=== PATIENT | male | born 1950 | race Caucasian/White ===

== ENCOUNTER 2023-09-29 23:17 | Inpatient (IN) | payer MEDICARE, SELFPAY ==
[2023-09-29 21:13] VITALS: BP 155/88
--- NOTE | 2023-09-29 21:30 | EDRN ---
In to patients room, patient in the bathroom, once out of bathroom pacing around room and wont sit down to be placed on monitor, was able to get patient to sit on edge of bed so I could start an IV and send blood
[2023-09-29 21:41] LABS: % Basophils 0.5 % (0-2); % Eosinophils 9.2 % (0-6); % Immature Granulocytes 0.4 % (0-0.5); % Lymphocytes 17.5 % (20.5-51.1); % Monocytes 6.7 % (1.7-9.3); % Neutrophils 65.7 % (42.2-75.2); Absolute Basophils 0.1 10^3/uL (0-0.2); Absolute Lymphocytes 1.8 10^3/uL (1.2-3.4); Absolute Monocytes 0.7 10^3/uL (0.1-0.6); Absolute Neutrophils 6.8 10^3/uL (1.4-6.5); Hematocrit 41.8 % (39.0-52.0); Hemoglobin 14.7 g/dL (13.0-18.0); Mean Corp Hgb Conc. 35.2 g/dL (33.0-37.0); Mean Corpuscular Hgb 31.5 pg (27.0-31.0); Mean Corpuscular Volume 89.5 fL (80.0-94.0); Mean Platelet Volume 9.5 fL (7.4-10.4); Nucleated Red Blood Cells % 0 % (-); Platelet Count 208 10^3/uL (130-400); Red Blood Cell Count 4.67 10^6/uL (4.70-6.10); Red Cell Dist. Width 13.8 % (11.5-14.5); White Blood Cell Count 10.4 10^3/uL (4.8-10.8)
[2023-09-29] MEDS: DUONEB 3 ML INH (21:48)
[2023-09-29] MEDS: DECADRON 10 MG IV (21:49)
[2023-09-29 22:04] LABS: Troponin I < 0.012 ng/ml
[2023-09-29 22:12] LABS: ALT (SGPT) 26 U/L (0-50); AST (SGOT) 34 U/L (17-59); Albumin 4.7 g/dl (3.5-5.0); Alkaline Phosphatase 96 U/L (38-126); Blood Urea Nitrogen 19 mg/dl (9-20); Calcium 11.2 mg/dl (8.4-10.2); Carbon Dioxide 24 mmol/L (22-30); Chloride 103 mmol/L (98-107); Glucose 110 mg/dl (70-99); Potassium 4.7 mmol/L (3.5-5.1); Sodium 141 mmol/L (135-145); Total Bilirubin 0.7 mg/dl (0.2-1.3); Total Protein 7.7 g/dl (6.3-8.2); eGFR 57.65
--- NOTE | 2023-09-29 22:18 | ED.GENMED ---
History of Present Illness
General
Chief Complaint: Breathing Problem
Source: patient and spouse
Exam Limitations: none
Time Seen by Provider: 09/29/23 21:29
Nursing documentation reviewed up to this point in time: agreed with
Travel History
Have you had any contact with someone who has COVID-19?: No
Do you have any symptoms of coronavirus? Fever > 100 degrees, chills, cough, shortness of breath, sore throat, loss of taste or smell, muscle aches, or headache?: No
History of Present Illness
History of Present Illness:
Patient to ED with complaint of severe PAGE. History of underlying lung disorder but he states he has never received an exact diagnosis. Has been on prednisone for the past 6 years which he feels has been helpful. Has been trying to wean self off
med and reports being on 5mg prednisone before running out of med a few days ago. Has been using his inhalers without improvement. Denies fever/chills. Chronic cough. Pulse ox at home mid 80's. No home O2. Typically pulse ox runs in the mid 90's
at home. NO home O2.
Past History
Past History
ED Past Medical History: CAD, Cancer, CHF, GERD, HTN and Hypercholesterolemia
ED Past Surgical History: Orthopedic and Other
Social History
Tobacco: Non-smoker
Alcohol: Occasional
Drug: None
Personal:
Living: with family
Employment: Retired
Family History
Family History: CAD
Review of Systems
Review of Systems
Allergies reviewed?: Yes
All Other Systems: ROS reviewed and negative except as documented in HPI and ROS
Constitutional: Reports no symptoms
EENT: Reports no symptoms
Respiratory: Reports cough and trouble breathing
Cardiac: Reports no symptoms
ABD/GI: Reports no symptoms
: Reports no symptoms
Musculoskeletal: Reports no symptoms
Skin: Reports no symptoms
Neurological: Reports weakness
Psychiatric: Reports no symptoms
Phy Exam
General Physical Exam
General Presentation: mild distress
General age: appears stated age
General Skin: warm and dry
General Habitus: normal
General Mental: alert
Cardiovascular Exam
Cardiovascular Exam: regular rate/rhythm and no edema
Pulmonary Exam
Pulmonary Exam: chest non tender, decreased breath sounds and generalized wheezing
Oxygen Status: other (Pulse ox 88%RA. Placed on 2L, maintaining at 93%)
Musculoskeletal Exam
Musculoskeletal Exam: full ROM and neuro vasc intact
Skin Exam
Skin Exam: normal color, warm/dry and no rash
Psychiatric Exam
Psychiatric Exam: normal mood/affect
Scores
Heart Failure Risk
Heart Failure Risk Score: Not Applicable
Course
Orders/Labs/Results
Orders:
Orders
09/29/23 21:30
Chest [CR Chest - 2 Views ] Urgent
Comment:
Reason For Exam: cougj/sob
09/29/23 21:32
CMP [Comprehensive Metabolic Panel] Urgent
Complete Blood Count/With Diff Urgent
NT-proBNP Urgent
Troponin I Urgent
09/29/23 21:41
Dexamethasone Sod Phosphate [Decadron] 10 mg IV NOW STA
Ipratropium/Albuterol Sulfate [Duoneb] 3 ml INH R NOW STA
09/29/23 22:53
COVID-19 Antigen Stat
Source: Nasal Swab
Influenza A+B Rapid Molecular Stat
JUNAID Source: Nasal Swab
Specimen Description:
09/29/23 22:56
Admit/Transfer Patient As Directed
Co-Sign Provider:
Level of Care: Inpatient admission
Assign to:: Medical/Surgical
Physician / Group: radha
Diagnosis: acute hypoxia
Reason for Hospitalization: acute hypoxia
Expected length of stay greater than two midnights?: Yes
ELOS- Estimated Length of Stay in days: 3
I certify the patient meets the requirements for IP care: Yes
09/29/23 22:58
Code Status As Directed
Resuscitation Status: Full Code
09/30/23 00:31
Acetaminophen [Tylenol] 650 mg PO Q4HPRN PRN
Bisacodyl [Dulcolax] 10 mg RECTAL [id number] PRN
Dextrose 50%-Water [Dextrose 50% Syringe] 12.5 grams IV [id number] PRN
Docusate W/Senna [Senokot-S] 1 tablet PO BIDPRN PRN
Glucagon [GlucaGen] 1 mg IM PRN PRN
Polyethylene Glycol Powder [Miralax] 17 grams PO DAILYPRN PRN
09/30/23 00:31
Consult Notification Routine
Specialty to Notify: Pulmonary
Date consulting provider notified: 09/30/23
Time consulting provider notified: 02:31
Notified:: Provider
Comment: Gadiel Strong
PULMONARY CONSULT Routine
Consulting Provider: Gadiel Strong
Was physician already notified: No
Reason for consult: acute hypoxic respiratory failure
Activity As Directed
Activity Level: As Tolerated
Bedside Glucose Monitoring As Directed
Frequency: AC&HS
Additional Instructions:: Change to q6h if pt on TPN, tube feeding or not eating
Intake/ Output As Directed
Frequency: Per unit guidelines
Vital Signs As Directed
Frequency: Per unit guidelines
Weight As Directed
Frequency: Daily
O2 Therapy [RESP] Routine
Nasal Cannula Liter Flow: 2 LPM
Titrate/Wean O2 to maintain O2 sat greater than (%): 92
DX Deep Vein Thrombosis Video Routine
09/30/23 04:27
Basic Metabolic Panel IN AM
Complete Blood Count/No Diff IN AM
Glycohemoglobin (HgbA1c) IN AM
Troponin I Q6H
09/30/23 Breakfast
1800 calorie (15 carb) Diabetic
At Your Request: Full Participation
Dexamethasone Sod Phosphate [Decadron] 4 mg IV Q6H
09/30/23 07:30
Insulin Aspart Corrective Low [Novolog Flexpen-Low Resistance] See Protocol SC AC
09/30/23 08:00
Aspirin Low Dose EC [Aspir Low (Enteric Coated)] 81 mg PO DAILY
Atorvastatin [Lipitor] 80 mg PO DAILY
Bumetanide [Bumex] 4 mg PO DAILY
Gabapentin [Neurontin] 100 mg PO TID
Heparin 5,000 units SC Q12
HydrALAZINE [Apresoline] 50 mg PO BID
Losartan [Cozaar] 50 mg PO DAILY
Metoprolol Xl [Toprol Xl] 12.5 mg PO DAILY
Potassium Chloride [KCl] 10 meq PO BID
Spironolactone [Aldactone] 25 mg PO DAILY
Tamsulosin [Flomax] 0.4 mg PO DAILY
09/30/23 09:37
Troponin I Q6H
Abnormal Lab Results
09/29/23
21:32
RBC 4.67 L 10^6/uL
(4.70-6.10)
MCH 31.5 H pg
(27.0-31.0)
Absolute Neuts (auto) 6.8 H 10^3/uL
(1.4-6.5)
Absolute Monos (auto) 0.7 H 10^3/uL
(0.1-0.6)
Absolute Eos (auto) 1.0 H 10^3/uL
(0-0.7)
Lymphocytes % 17.5 L %
(20.5-51.1)
Eosinophils % 9.2 H %
(0-6)
Glucose 110 H mg/dl
(70-99)
Calcium 11.2 H mg/dl
(8.4-10.2)
09/29/23 21:32
09/29/23 21:32
Vital Signs
Initial and Last Documented VS:
Initial Vital Signs
Temp Pulse Resp BP Pulse Ox
98.5 F 86 24 155/88 94
09/29/23 21:13 09/29/23 21:13 09/29/23 21:13 09/29/23 21:13 09/29/23 21:13
Last Documented Vital Signs
Temp Pulse Resp BP Pulse Ox
98.2 F 61 16 136/79 95
10/01/23 15:37 10/01/23 20:22 10/01/23 19:18 10/01/23 20:22 10/01/23 19:18
*Critical Care Note
Total Time (30-74mins, 75-104mins- exclusive of procedures): Not Applicable
ED Attending Note
-
Portions of this chart may have been created with voice recognition software.� Occasional wrong word or��sound alike� substitutions may have occurred due to the inherent limitations of voice recognition software.
Discharge Plan
Departure
Patient Disposition: Admit
Date of Disposition: 09/29/23
Time of Disposition: 22:31
Presentation/result/management discussed w/ accepting MD/DO: Hospitalist
Condition: Fair
Covid-19: Not Applicable
Discharge Problem:
PAGE (dyspnea on exertion), Hypoxemia
Interventions
Interventions:
*Risk Screen - Suicide Last Done: 09/30/23 00:37
*General Assessment Last Done: 09/29/23 22:34
*Neglect/Abuse Screening Last Done: 09/29/23 21:13
ED- Fall Risk Assessment Last Done: 09/29/23 22:03
*ED COVID-19 Vaccine History Last Done: 09/30/23 00:37
*Nursing Disposition Last Done: 09/30/23 00:19
ED- Cardiac Assessment Last Done: 09/29/23 22:03
ED- Pulmonary Assessment Last Done: 09/29/23 22:03
Discharge Date and Time
Discharge Date/Time: 09/30/23 00:19
[2023-09-29 22:34] VITALS: BMI 33.5
--- NOTE | 2023-09-29 22:34 | HPS.HSE ---
Family Physician
-
Family Physician:
Chief Complaint
-
sob
History of Present Illness
73-year-old with past medical history for lung disease, CAD, CHF, GERD, hypertension, hyperlipidemia presented to us with short of breath for past few nights. Short of breath worse with mild activity. Stated chronic orthopnea. Patient was
prednisone on Saturday. Patient has been using nebulizer treatment with no relief in his symptoms. denies chest pain. Patient does have cough. Denies fever, chills, chest pain. Patient denies any headache, dizziness, syncopal episode. Patient
denied abdominal pain, nausea, vomiting, diarrhea. Patient denied dysuria hematuria.
Patient received a dose of dexamethasone in ER. Admitting for further management
Medical History
Past Medical History
Past Medical History: Reports Other
Additional Past Medical History:
PVCs
Hypertension
Congestive heart failure
Coronary artery disease
Past Surgical History: Reports Other
Additional Past Surgical History:
Cardiac stents
Social History
Tobacco: Non-smoker
Alcohol: None
Drug: None
Personal:
Living: With Family
Family History
Family History: Not pertinent
Allergies / Home Medications
Allergies reflects when Allergies were last updated in [facility].
Home Medications with original date entered in [facility]
Allergy/Medication List:
Allergies
Allergy/AdvReac Type Severity Reaction Status Date / Time
No Known Allergies Allergy Verified 09/29/23 21:16
Home Medications
aspirin 81 mg tablet,delayed release 81 mg PO DAILY Blood Clot Prevention/Tx 04/29/15
losartan 50 mg tablet 50 mg PO DAILY Blood Pressure 08/03/15
acetaminophen 500 mg tablet (Tylenol Extra Strength) 1,000 mg PO Q6H PRN mild pain 02/19/17
albuterol sulfate 2.5 mg/3 mL (0.083 %) solution for nebulization 2.5 mg inhalation R Q4HPRN PRN wheeze/cough 05/05/20
albuterol sulfate 90 mcg/actuation aerosol inhaler 2 puff inhalation R Q4HPRN PRN WHEEZING 05/05/20
cholecalciferol (vitamin D3) 25 mcg (1,000 unit) tablet 1,000 units PO DAILY Supplement 05/05/20
tamsulosin 0.4 mg capsule 0.4 mg PO DAILY Urinary Issue 05/05/20
atorvastatin 80 mg tablet 80 mg PO DAILY High Cholesterol 12/06/22
bumetanide 2 mg tablet 4 mg PO DAILY Fluid Retention/Swelling 12/06/22
coenzyme Q10 75 mg capsule 75 mg PO DAILY Supplement 12/06/22
famotidine 40 mg tablet 40 mg PO DAILY 12/06/22
hydralazine 25 mg tablet 50 mg PO BID Blood Pressure 12/06/22
metoprolol succinate 25 mg tablet,extended release 24 hr 12.5 mg PO DAILY Heart Failure 12/06/22
nitroglycerin 0.4 mg sublingual tablet (Nitrostat) 0.4 mg sublingual [id number] PRN chest pain 12/06/22
omega 8-lrj-kaa-fish oil 60 mg-90 mg-500 mg capsule (Fish Oil) 1 cap PO BID Blood Pressure 12/06/22
potassium chloride 10 mEq tablet,extended release 10 meq PO BID Electrolyte Repletion 12/06/22
prednisone 10 mg tablet 10 mg PO DAILY inflammation 12/06/22
spironolactone 25 mg tablet 25 mg PO DAILY Heart Failure 12/06/22
modafinil 200 mg tablet 200 mg PO DAILYPRN PRN narcolepsy symptoms 12/07/22
gabapentin 100 mg capsule 100 mg PO TID #90 caps 12/09/22
metformin 500 mg tablet 500 mg PO BID 09/29/23
Review of Systems
-
Constitutional: Reports No Symptoms
EENT: Reports No Symptoms
Respiratory: Reports Cough and Trouble Breathing
Cardiac: Reports No Symptoms
Abdomen/GI: Reports No Symptoms
: Reports No Symptoms
Musculoskeletal: Reports No Symptoms
Skin: Reports No Symptoms
Neurological: Reports No Symptoms
Endocrine: Reports No Symptoms
Hematologic/Lymphatic: Reports No Symptoms
Psych: Reports No Symptoms
Physical Exam
Vital Signs
Vital Signs
Temp Pulse Resp BP Pulse Ox
98.5 F 86 24 155/88 94
09/29/23 21:13 09/29/23 21:13 09/29/23 21:13 09/29/23 21:13 09/29/23 21:13
Physical Exam
General: Well Developed, Well Nourished and No Apparent Distress
HEENT: NormoCephalic, Moist mucous membranes and Atraumatic
Respiratory: Rales and Rhonchi
Cardiac: S1/S2 and Regular Rhythm; No Murmur or Rub
GI: Soft, Non Tender, Non Distended and Normal Bowel Sounds; No Organomegaly
Rectal: Deferred by Provider
Musculoskeletal: No Clubbing, No Cyanosis and No Edema
Skin: No Rash
Neuro: AO x 3 and Nonfocal/grossly intact
Psych: Calm
Laboratory Results
-
09/29/23 21:32
09/29/23 21:32
Laboratory Results
Total Bilirubin 0.7 mg/dl (0.2-1.3) 09/29/23 21:32
AST 34 U/L (17-59) 09/29/23 21:32
ALT 26 U/L (0-50) 09/29/23 21:32
Alkaline Phosphatase 96 U/L (38-126) 09/29/23 21:32
Troponin I < 0.012 ng/ml 09/29/23 21:32
Data Reviewed
-
Diagnostic Radiology: Report Reviewed by me
Lab Data: Labs Reviewed by me
Impression/Plan
-
#PAGE/cough /acute hypoxic respiratory failure likely from lung disease
-chest x ray pending
-Obtain COVID and flu
-Decadron 4 Mg IV every 6 hours
-Pulmonology consult
-Nebs as needed for short of breath and wheezing
-Continue supplemental oxygen to keep sat greater than 92
-Wean as tolerated
#hypercalcemia
-ca 11.2
-Monitor
# Essential hypertension
-Hydralazine, losartan, metoprolol continued
#CORONARY ARTERY DISEASE
-Continue aspirin
#Chronic heart failure with preserved ejection fraction
-Obtain echocardiogram
-Continue Bumex spironolactone
-Strict CESAR
-Daily weight
#Diabetic neuropathy
-Gabapentin continued
#BPH - Flomax
#DVT PPx hep subQ
full code
--- NOTE | 2023-09-29 22:42 | EDRN ---
Hospitalist at bedside working on admission, patient provided with water, patient still wants to sit on end of bed, is more comfortable that way, call ash in reach
[2023-09-29 23:17] LABS: COVID-19 Antigen Negative (Negative)
--- NOTE | 2023-09-29 23:19 | W.PN.UPDATE ---
Update Note
Progress Note Update
Attending note. Patient interviewed and examined independently
73-year-old man with past medical history of:
lung disease,
CAD,
CHF,
GERD,
hypertension,
hyperlipidemia
comes in with short of breath for past few days. He has also been Short of breath with mild activity. He has chronic orthopnea. He was started on prednisone on Saturday, and he has been using nebulizer treatment with no relief in his symptoms. He
denies chest pain, but does have cough. he denies fever, chills, chest pain, any headache, dizziness, syncopal episode, abdominal pain, nausea, vomiting, diarrhea, dysuria or hematuria. at the time of my interview he was feeling better after having
had steroids in the ED.
Past Medical History
PVCs
Hypertension
Congestive heart failure
Coronary artery disease
Past Surgical History: Reports Other
Additional Past Surgical History:
Cardiac stents
Physical Exam
General: Well Developed, Well Nourished and No Apparent Distress
HEENT: NormoCephalic, Moist mucous membranes and Atraumatic
Respiratory: Rales and Rhonchi
Cardiac: S1/S2 and Regular Rhythm; No Murmur or Rub
GI: Soft, Non Tender, Non Distended and Normal Bowel Sounds; No Organomegaly
A/P:
1. PAGE/cough /acute hypoxic respiratory failure likely from lung disease and current high pollen counts
-check for COVID and flu
-Decadron 4 Mg IV every 6 hours
-Pulmonology consult
-Nebs as needed for short of breath and wheezing
-Continue supplemental oxygen to keep sat greater than 92
2. Chronic heart failure with preserved ejection fraction
echocardiogram
Continue Bumex spironolactone
Strict CESAR
Daily weight
Please see midlevel note for other details.
[2023-09-30 00:25] VITALS: BP 167/76; BMI 33.2
--- NOTE | 2023-09-30 00:45 | PTCARENOTE ---
Pt admitted to unit from ED on 2L NC. Pt ambulated self to bed from stretcher. Pt denies SOB and difficulty breathing. [id number]. Pt oriented to room with call sah in reach. Plan of care ongoing.
[2023-09-30 01:58] LABS: Glucose - Point of Care 127 mg/dl (70-99)
[2023-09-30 04:37] LABS: Hematocrit 40.5 % (39.0-52.0); Hemoglobin 13.6 g/dL (13.0-18.0); Mean Corp Hgb Conc. 33.6 g/dL (33.0-37.0); Mean Corpuscular Hgb 31.3 pg (27.0-31.0); Mean Corpuscular Volume 93.1 fL (80.0-94.0); Mean Platelet Volume 9.8 fL (7.4-10.4); Platelet Count 179 10^3/uL (130-400); Red Blood Cell Count 4.35 10^6/uL (4.70-6.10); Red Cell Dist. Width 13.5 % (11.5-14.5); White Blood Cell Count 6.9 10^3/uL (4.8-10.8)
[2023-09-30 05:02] LABS: Blood Urea Nitrogen 18 mg/dl (9-20); Calcium 10.4 mg/dl (8.4-10.2); Carbon Dioxide 25 mmol/L (22-30); Chloride 102 mmol/L (98-107); Estimated Creatinine Clearance 65 ml/min; Glucose 150 mg/dl (70-99); Potassium 4.9 mmol/L (3.5-5.1); Sodium 139 mmol/L (135-145); eGFR > 60.00
[2023-09-30 05:12] LABS: Troponin I 0.014 ng/ml
[2023-09-30 05:55] VITALS: BMI 33.1
[2023-09-30] MEDS: DECADRON 4 MG IV ×4 (06:02→23:18)
[2023-09-30 06:28] LABS: Glucose - Point of Care 131 mg/dl (70-99)
[2023-09-30 07:38] VITALS: BP 167/85
[2023-09-30] MEDS: BUMEX 4 MG PO (07:55)
[2023-09-30] MEDS: COZAAR 50 MG PO (07:55)
[2023-09-30] MEDS: NEURONTIN 100 MG PO ×3 (07:56→22:19)
[2023-09-30] MEDS: FLOMAX 0.400000000000000022 MG PO (07:56)
[2023-09-30] MEDS: APRESOLINE 50 MG PO ×2 (07:56→20:55)
[2023-09-30] MEDS: KCL 10 MEQ PO ×2 (07:56→20:47)
[2023-09-30] MEDS: ALDACTONE 25 MG PO (07:56)
[2023-09-30] MEDS: ASPIR LOW (ENTERIC COATED) 81 MG PO (07:56)
[2023-09-30] MEDS: LIPITOR 80 MG PO (07:56)
[2023-09-30] MEDS: TOPROL XL 12.5 MG PO (07:56)
[2023-09-30] MEDS: HEPARIN 5000 UNITS SC ×2 (07:57→20:48)
[2023-09-30 09:41] LABS: Glycohemoglobin (HgbA1c) 6.4 % (4.0-5.6)
[2023-09-30] MEDS: MUCINEX 1200 MG PO ×2 (09:42→20:47)
[2023-09-30] MEDS: TESSALON PERLES 200 MG PO ×2 (09:43→20:47)
[2023-09-30 10:16] LABS: Troponin I < 0.012 ng/ml
--- NOTE | 2023-09-30 10:18 | W.PN.HOSP.TC ---
Today's Communication/Plan
-
.
Assessment / Plan
Assessment / Plan
Physical Exam
General: Keeps coughing while talking. But not in acute distress
HEENT: Normocephalic, Atraumatic, EOMI, MMM
Respiratory: Rales and wheezes bilaterally
Cardiac: Normal S1/S2, Regular Rate and Rhythm
GI: Soft, Nontender, Nondistended, Normal Bowel Sounds
Extremities: No Clubbing, Cyanosis, or Edema
Neuro: Nonfocal/Grossly Intact
Psych: Calm, Cooperative
: no hematuria
# Acute respiratory distress with acute hypoxic respiratory failure
Underlying chronic lung disease on chronic prednisone. Per pt ( COPD, Eosinophilic lung disease) . No hx of smoking or vaping. He follows with Dr Gilmar Mccormack at [facility]. Try to get records
-Negative COVID and flu
- Chest x ray : No acute cardiopulmonary process.
-Decadron 4 Mg IV every 6 hours. On daily prednisone at 10 mg ( recently ran out )
- Order Duo Neb ATC
-Add Mucinex & Tessalon
-Nebs as needed for short of breath and wheezing
-Continue supplemental oxygen to keep sat greater than 92
# Chronic heart failure with preserved ejection fraction
Continue Bumex spironolactone
Daily weight
# Hypercalcemia, possibly related to high Vitamin D, check level
# DM
HGB A1C 6.4
c/w home regimen upon dc
for now, do ISS . Blood glucose might go up due to steroid therapy.
# CAD
Negative serial troponin
No chest pain
# Primary HTN
c/w metoprolol, hydralazine, losartan, Bumex and Aldactone
# BPH - Flomax, hold if hypotensive
DVT PPx hep subQ
Total time spent to see the patient, examine the patient on the floor, review data and lab results, discuss treatment plan with patient, nursing staff around 55 minutes
Anticipated Discharge: > 48 hours
Subjective/Interval History
-
Date of Service: September 30, 2023
Still cough but less sob
No fevers
No chest pains
Objective Data
-
Labs:
Laboratory Results
09/30/23
04:27
WBC 6.9
Hgb 13.6
Hct 40.5
Plt Count 179
Sodium 139
Potassium 4.9
Chloride 102
Carbon Dioxide 25
BUN 18
Creatinine 1.2
Glucose 150 H
Calcium 10.4 H
Vital Signs:
Vital Signs
Temp Pulse Resp BP Pulse Ox
98.2 F 59 16 167/85 95
09/30/23 07:38 09/30/23 07:38 09/30/23 07:38 09/30/23 07:56 09/30/23 07:38
I&O
09/29/23 09/30/23 10/01/23
06:59 06:59 06:59
Intake Total 480 / 480
Balance 480 / 480
--- NOTE | 2023-09-30 11:03 | CON.PUL ---
Consultation
Consultation Request
Date/Time Consultation Requested: 09/30/202330
Date/Time Consultation Performed: 09/30/2023 - 1039
Requesting Provider: BRISEYDA Mayo
Performing Provider: Dr. Strong
Reason for Consultation: SOB/Hypoxia
Medical History
-
Chief Complaint: Worsening SOB + productive cough/congestion
History of Present Illness:
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
home. Patient says that he is on chronic prednisone usually on average 10 mg daily. He ran out of prednisone on and was unable to make it throughout the holiday weekend so he came into the hospital. He usually gets multiple flareups a
year, and is able to overcome it with prednisone and Z-Danilo. 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 He has been seen at [facility] as well as [facility]. He has
a nebulizer at home and he uses this only for as needed purposes. He says that he previously was on Nucala about 5 years ago for 6 months, but he is not sure if it really helped him breathe better so he stopped, also he was very cost prohibitive.
In the ER he was saturating 94% on room air but due to shortness of breath he was placed onto 2 L/min and saturating at 97%. He was tachypneic to 24 breaths/min, heart rate 86 and afebrile to 98.5 �F. Initial BP 155/88. Labs showed an absolute
eosinophil count of 1000, proBNP of 81, and he was COVID antigen negative. Flu swab also negative and CXR showed no acute cardiopulmonary process.
When I saw the patient he was in bed, in no acute distress, on 2 L/min nasal cannula breathing comfortably. He says he feels a little better since being here because he was unable to tolerate any activity at home and was coughing severely. He
denies any bloody phlegm. He currently denies chest pain, headache, abdominal pain, fevers or chills.
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
PSHx: Left shoulder pain, renal stent, torn meniscus of left knee, history of radiation for prostate cancer, right shoulder plate and 12 screws (November 2010), coronary stent
Past Medical History
Past Medical History: Other (Above as per HPI)
Past Surgical History: Other (Above as per HPI)
Social History
Tobacco: Non-smoker
Alcohol: None
Drug: None
Personal:
Living: With Family
Family History
Family History: Reviewed & Not Pertinent
Allergies / Home Medications
Allergies
Allergy/AdvReac Type Severity Reaction Status Date / Time
No Known Allergies Allergy Verified 09/29/23 21:16
Home Medications
�Medication �Instructions �Recorded �Confirmed �Last Taken �Type
aspirin 81 mg tablet,delayed 81 mg PO DAILY Blood Clot 04/29/15 09/30/23 09/29/23 History
release Prevention/Tx
losartan 50 mg tablet 50 mg PO DAILY Blood Pressure 08/03/15 09/30/23 09/29/23 History
acetaminophen 500 mg tablet 1,000 mg PO Q6H PRN mild pain 02/19/17 09/29/23 Unknown History
(Tylenol Extra Strength)
albuterol sulfate 2.5 mg/3 mL 2.5 mg inhalation R Q4HPRN PRN 05/05/20 09/30/23 09/29/23 History
(0.083 %) solution for nebulization wheeze/cough
albuterol sulfate 90 mcg/actuation 2 puff inhalation R Q4HPRN PRN 05/05/20 09/30/23 09/29/23 History
aerosol inhaler WHEEZING
cholecalciferol (vitamin D3) 25 1,000 units PO DAILY Supplement 05/05/20 09/30/23 09/29/23 History
mcg (1,000 unit) tablet
tamsulosin 0.4 mg capsule 0.4 mg PO DAILY Urinary Issue 05/05/20 09/30/23 09/29/23 History
atorvastatin 80 mg tablet 80 mg PO DAILY High Cholesterol 12/06/22 09/30/23 09/29/23 History
bumetanide 2 mg tablet 4 mg PO DAILY Fluid 12/06/22 09/30/23 09/29/23 History
Retention/Swelling
coenzyme Q10 75 mg capsule 75 mg PO DAILY Supplement 12/06/22 09/30/23 09/29/23 History
famotidine 40 mg tablet 40 mg PO DAILY Gastrointestinal 12/06/22 09/30/23 09/29/23 History
Issue
hydralazine 25 mg tablet 50 mg PO BID Blood Pressure 12/06/22 09/30/23 09/29/23 18:00 History
metoprolol succinate 25 mg 12.5 mg PO DAILY Heart Failure 12/06/22 09/30/23 09/29/23 History
tablet,extended release 24 hr
nitroglycerin 0.4 mg sublingual 0.4 mg sublingual [id number] PRN 12/06/22 09/29/23 Unknown History
tablet (Nitrostat) chest pain
omega 2-dxx-kre-fish oil 60 mg-90 1 cap PO BID Blood Pressure 12/06/22 09/29/23 Unknown History
mg-500 mg capsule (Fish Oil)
potassium chloride 10 mEq 10 meq PO BID Electrolyte Repletion 12/06/22 09/30/23 Unknown History
tablet,extended release
prednisone 10 mg tablet 10 mg PO DAILY inflammation 12/06/22 09/30/23 09/27/23 History
spironolactone 25 mg tablet 25 mg PO DAILY Heart Failure 12/06/22 09/30/23 09/29/23 History
modafinil 200 mg tablet 200 mg PO DAILYPRN PRN narcolepsy 12/07/22 09/30/23 09/30/23 History
symptoms
gabapentin 100 mg capsule 100 mg PO TID #90 caps 12/09/22 09/30/23 09/29/23 18:00 Rx
metformin 500 mg tablet 500 mg PO BID Diabetes 09/29/23 09/30/23 09/29/23 18:00 History
Review of Systems
-
History Source: Patient
All other systems: Negative unless noted
Vitals / Labs / Diagnostic Testing
Vital Signs
Temp Pulse Resp BP Pulse Ox
98.2 F 59 16 167/85 95
09/30/23 07:38 09/30/23 07:38 09/30/23 07:38 09/30/23 07:56 09/30/23 07:38
Lab Data
09/30/23 04:27
09/30/23 04:27
Microbiology
09/29/23 22:53 Nasal Swab Influenza Types A & B (FABIENNE) - Final
Negative for Influenza A & B, NAAT
Negative results must be combined with clinical observations
and patient history.
Nucleic Acid Amplification test (NAAT)performed on the
[employer] platform.
Diagnostic Testing:
Physical Exam
-
HEENT: Normocephalic and Anicteric
Cardiovascular: S1/S2 and Peripheral Edema (+1 lower extreme edema bilaterally)
Respiratory: Wheeze ([place] occasionally in the middle lung garg (R >L)), Rales (Negative), Rhonchi (Negative) and Non-Labored Respirations
GI: Soft, Distended (Abdominal obesity), Non Tender and Normal Bowel Sounds
Neurology: AO x 3 and Tremors (Negative)
Skin: Warm and Dry
General: Comfortable, Fever (Negative) and Chills (Negative)
Assessment
-
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
inhalers/nebulizers at home. Patient says that he is on chronic prednisone usually on average 10 mg daily. He ran out of prednisone on and was unable to make it throughout the holiday weekend so he came into the hospital. He usually gets
multiple flareups a year, and is able to overcome it with prednisone and Z-Danilo. 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 He has been seen at [facility] as well as [facility]. He has a nebulizer at home and he uses this only for as needed purposes. He says that he previously was on Nucala about 5 years ago for 6 months, but he is not sure if it really helped him breathe better so he stopped, also he was
very cost prohibitive. In the ER he was saturating 94% on room air but due to shortness of breath he was placed onto 2 L/min and saturating at 97%. He was tachypneic to 24 breaths/min, heart rate 86 and afebrile to 98.5 �F. Initial BP 155/88.
Labs showed an absolute eosinophil count of 1000, proBNP of 81, and he was COVID antigen negative. Flu swab also negative and CXR showed no acute cardiopulmonary process.
Chronic conditions G[employer]ER: Hypertension, CHF, CAD s/p coronary stent, PVCs, history of asthma on chronic prednisone (however he has also been told that he has eosinophilic bronchitis, and occupational asthma ([facility] lung)), history of prostate cancer
s/p XRT
Impression:
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
#Increased eosinophil count (absolute count of 1000 on 09/29/2023)
#Prediabetes with A1c 6.4
#History of CAD s/p coronary stent
#Chronic HFpEF (via TTE from December 2022 with LVEF 55 to 60%, and normal RV size/function)
#Obesity with BMI of 33
Plan:
- Continue with systemic steroids and wean as tolerated � currently on Decadron 4 mg IV q6hr
- Duonebs QID with prn doses for in between breakthrough Sx
- Check Aspergillus spp serology + IgE level
- Given that he is on chronic prednisone with an eosinophil count of 1000 with symptoms consistent with asthma, I believe he would greatly benefit from a biologic as add on maintenance treatment.
- As he gets closer to discharge, he should be started on Symbicort and Spriva and sent home on Bretri vs Trelegy 200mcg, and I will see him in the office.
- Maintain SpO2 >90-94% with supplemental O2 as needed
- Incentive spirometer encouraged
- Given his obesity with prediabetes, heart disease and heart failure, he should also be screened for sleep disordered breathing. I can discuss this with him in the office.
- Monitor volume status given his Hx of chronic HFpEF and he has b/l LE edema, but appear not to have rales today. May need lasix though going forward if o2 requirements worsen
- Replete electrolytes with K>4, Mg>2
- Maintain euglycemia with goal BG >100 and <180
- DVT ppx
As stated above, he should be discharged on triple inhaler therapy with Breztri versus Trelegy 200 mcg upon discharge, and I will see him in the office to discuss adding on a biologic (likely Dupixent as he did not feel improvement with Nucala in
the past + it was cost-prohibitive). He will also need to be discharged home on prednisone as he chronically takes 10 mg daily, on average.
Pulmonary service will continue to follow along.
Data:
CXR � 09/29/2023: No acute cardiopulmonary process
TTE :
Normal left ventricular chamber size.
Normal regional wall motion.
Mild concentric left ventricular hypertrophy.
Left ventricular ejection fraction is 55-60% by volumetric assessment.
Normal right ventricular size and function.
Trace mitral regurgitation.
The tricuspid valve is structurally and functionally normal.
The pulmonic valve is structurally and functionally normal.
No pericardial effusion.
The aortic arch is normal in caliber.
The IVC was not well visualized.
Interatrial septum is intact with no evidence of shunting by color flow Doppler.
Total time spent today was 55 minutes for this encounter. Time includes reviewing laboratory test/imaging results, reviewing pertinent medical records, obtaining and reviewing medical history, performing an appropriate exam, ordering medications,
tests and procedures. Time also includes documentation of this encounter, coordinating patient care and communicating with other healthcare professionals. Total time does not include separately billed tests performed on this date of service.
[2023-09-30] MEDS: DUONEB 3 ML INH ×3 (11:17→19:58)
[2023-09-30] MEDS: PLAVIX 75 MG PO (11:25)
[2023-09-30 11:48] LABS: Glucose - Point of Care 128 mg/dl (70-99)
[2023-09-30] MEDS: TYLENOL 650 MG PO (13:50)
[2023-09-30 15:22] VITALS: BP 149/73
[2023-09-30 16:40] LABS: Glucose - Point of Care 123 mg/dl (70-99)
[2023-09-30 21:26] LABS: Glucose - Point of Care 190 mg/dl (70-99)
[2023-09-30] MEDS: KLONOPIN 0.5 MG PO (22:19)
[2023-09-30 23:23] VITALS: BP 159/77
[2023-10-01] MEDS: DECADRON 4 MG IV ×3 (05:55→23:30)
[2023-10-01 06:00] VITALS: BMI 32.1
[2023-10-01 07:45] LABS: Glucose - Point of Care 125 mg/dl (70-99)
[2023-10-01 07:51] VITALS: BP 158/80
[2023-10-01] MEDS: DUONEB 3 ML INH ×4 (07:51→19:16)
[2023-10-01] MEDS: TESSALON PERLES 200 MG PO ×2 (08:16→20:22)
[2023-10-01] MEDS: BUMEX 4 MG PO (08:16)
[2023-10-01] MEDS: LIPITOR 80 MG PO (08:17)
[2023-10-01] MEDS: APRESOLINE 50 MG PO ×2 (08:17→20:22)
[2023-10-01] MEDS: FLOMAX 0.400000000000000022 MG PO (08:18)
[2023-10-01] MEDS: KCL 10 MEQ PO ×2 (08:18→20:21)
[2023-10-01] MEDS: PLAVIX 75 MG PO (08:18)
[2023-10-01] MEDS: TOPROL XL 12.5 MG PO (08:18)
[2023-10-01] MEDS: ALDACTONE 25 MG PO (08:19)
[2023-10-01] MEDS: COZAAR 50 MG PO (08:19)
[2023-10-01] MEDS: NEURONTIN 100 MG PO ×3 (08:19→22:23)
[2023-10-01] MEDS: ASPIR LOW (ENTERIC COATED) 81 MG PO (08:20)
[2023-10-01] MEDS: MUCINEX 1200 MG PO ×2 (08:20→20:21)
[2023-10-01] MEDS: HEPARIN 5000 UNITS SC ×2 (08:20→20:20)
[2023-10-01 09:13] LABS: Vitamin D, 25-OH*** > 126 ng/mL (30-80)
--- NOTE | 2023-10-01 10:36 | W.PN.HOSP.TC ---
Today's Communication/Plan
-
likely dc in am if continues to do well
Assessment / Plan
Assessment / Plan
Physical Exam
General: Keeps coughing while talking. But not in acute distress
HEENT: Normocephalic, Atraumatic, EOMI, MMM
Respiratory: Less rales and wheezes bilaterally
Cardiac: Normal S1/S2, Regular Rate and Rhythm
GI: Soft, Nontender, Nondistended, Normal Bowel Sounds
Extremities: No Clubbing, Cyanosis, or Edema
Neuro: Nonfocal/Grossly Intact
Psych: Calm, Cooperative
: no hematuria
# Acute respiratory distress with acute hypoxic respiratory failure
Good clinical improvement in last 24 hours
Underlying chronic lung disease on chronic prednisone. Per pt ( COPD, Eosinophilic lung disease) . No hx of smoking or vaping. He follows with Dr Gilmar Mccormack at [facility]. Will reach out to him today.
-Negative COVID and flu
- Chest x ray : No acute cardiopulmonary process.
-Decadron 4 Mg IV every 6 hours. Wean down to Q8H then oral prednisone in am. He was on daily prednisone at 10 mg ( recently ran out )
- Ordered Duo Neb ATC
-Added Mucinex & Tessalon
-Nebs as needed for short of breath and wheezing
-Continue supplemental oxygen to keep sat greater than 92
Patient wants to f/w our pulmonary group now
Appreciate pulmonary input
# Chronic heart failure with preserved ejection fraction
Continue Bumex spironolactone
Daily weight
# Hypercalcemia, possibly related to high Vitamin D, check level
# DM
HGB A1C 6.4
c/w home regimen upon dc
for now, do ISS . Blood glucose might go up due to steroid therapy.
# CAD
Negative serial troponin
No chest pain
# Primary HTN
c/w metoprolol, hydralazine, losartan, Bumex and Aldactone
# BPH - Flomax, hold if hypotensive
DVT PPx hep subQ
Total time spent to see the patient, examine the patient on the floor, review data and lab results, discuss treatment plan with patient, nursing staff around 55 minutes
Anticipated Discharge: Within 24 hours
Subjective/Interval History
-
Date of Service: October 01, 2023
He is feeling better, less cough. Off O2 now
Objective Data
-
Vital Signs:
Vital Signs
Temp Pulse Resp BP Pulse Ox
97.8 F 68 16 158/80 93
10/01/23 07:51 10/01/23 07:59 10/01/23 07:59 10/01/23 07:51 10/01/23 07:59
I&O
09/30/23 10/01/23 10/02/23
06:59 06:59 06:59
Intake Total 480 / 480 720 / 720
Output Total 3900 / 3900
Balance 480 / 480 -3180 / -3180
--- NOTE | 2023-10-01 10:39 | W.PN.PUL.V3 ---
Today's Communication / Plan
-
Wean oxygen.
No change in steroids.
Continue nebulizers, lytics, and antitussives.
IgE and Aspergillus precipitins pending.
Consider Bhupendra as an outpatient
Assessment
-
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
inhalers/nebulizers at home. Patient says that he is on chronic prednisone usually on average 10 mg daily. He ran out of prednisone on and was unable to make it throughout the holiday weekend so he came into the hospital. He usually gets
multiple flareups a year, and is able to overcome it with prednisone and Z-Danilo. 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 He has been seen at [facility] as well as [facility]. He has a nebulizer at home and he uses this only for as needed purposes. He says that he previously was on Nucala about 5 years ago for 6 months, but he is not sure if it really helped him breathe better so he stopped, also he was
very cost prohibitive. In the ER he was saturating 94% on room air but due to shortness of breath he was placed onto 2 L/min and saturating at 97%. He was tachypneic to 24 breaths/min, heart rate 86 and afebrile to 98.5 �F. Initial BP 155/88.
Labs showed an absolute eosinophil count of 1000, proBNP of 81, and he was COVID antigen negative. Flu swab also negative and CXR showed no acute cardiopulmonary process.
Chronic conditions [employer]HOUSING [employer]IST: Hypertension, CHF, CAD s/p coronary stent, PVCs, history of asthma on chronic prednisone (however he has also been told that he has eosinophilic bronchitis, and occupational asthma ([facility] lung)), history of prostate cancer
s/p XRT
Impression:
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
#Increased eosinophil count (absolute count of 1000 on 09/29/2023)
#Prediabetes with A1c 6.4
#History of CAD s/p coronary stent
#Chronic HFpEF (via TTE from December 2022 with LVEF 55 to 60%, and normal RV size/function)
#Obesity with BMI of 33
Plan:
Respiratory status minimally improved.
Supplemental oxygen as needed.
Assessment discharge. Supplemental oxygen needs prior to discharge.
Decadron 4 mg IV every 8 8 hours-no change.
Mucolytic's
Tessalon Perles.
Duo nebs 4 times a day.
Incentive spirometry.
Aspiration precautions.
Eosinophil level significantly elevated.
Check Aspergillus serology as well as IgE level.
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
Transition to Breztri the time of discharge..
Diuresis as tolerated.
Monitor renal function, weight, lower extremity edema and intake/output
Risk factors for sleep-disordered breathing-outpatient sleep evaluation as well.
DVT prophylaxis-on subcutaneous heparin.
Nutrition
Early mobilization
As stated above, he should be discharged on triple inhaler therapy with Breztri versus Trelegy 200 mcg upon discharge, and Dr. Strong will see him in the office to discuss adding on a biologic (likely Dupixent as he did not feel improvement with
Nucala in the past + it was cost-prohibitive). He will also need to be discharged home on prednisone as he chronically takes 10 mg daily, on average.
Outpatient pulmonary follow-up
Data:
CXR � 09/29/2023: No acute cardiopulmonary process
TTE :
Normal left ventricular chamber size.
Normal regional wall motion.
Mild concentric left ventricular hypertrophy.
Left ventricular ejection fraction is 55-60% by volumetric assessment.
Normal right ventricular size and function.
Trace mitral regurgitation.
The tricuspid valve is structurally and functionally normal.
The pulmonic valve is structurally and functionally normal.
No pericardial effusion.
The aortic arch is normal in caliber.
The IVC was not well visualized.
Interatrial septum is intact with no evidence of shunting by color flow Doppler.
Total time spent today was 55 minutes for this encounter. Time includes reviewing laboratory test/imaging results, reviewing pertinent medical records, obtaining and reviewing medical history, performing an appropriate exam, ordering medications,
tests and procedures. Time also includes documentation of this encounter, coordinating patient care and communicating with other healthcare professionals. Total time does not include separately billed tests performed on this date of service.
Subjective Data
-
Date of Service:
Date of Service: October 01, 2023
Chief Complaint: Pulmonary Follow Up and Dyspnea Follow Up
Subjective:
Feels a little better, less wheezing, no chest pain, no productive cough, no abdominal pain, no lower extremity edema
Review of Systems
General: Other ( per HPI)
Objective Data
Data Reviewed
Vital Signs / I&O:
Vital Signs
Temp Pulse Resp BP Pulse Ox
97.8 F 68 16 158/80 93
10/01/23 07:51 10/01/23 07:59 10/01/23 07:59 10/01/23 07:51 10/01/23 07:59
Intake and Output
09/30/23 10/01/23 10/02/23
06:59 06:59 06:59
Intake Total 480 / 480 720 / 720
Output Total 3900 / 3900
Balance 480 / 480 -3180 / -3180
SaO2: 93
Nasal Cannula flow liters per minute: 2
Physical Exam
General: Respiratory Distress (n) and Comfortable
HEENT: Normocephalic and Anicteric
Cardiovascular: Regular Rhythm
Respiratory: Wheeze ( expiratory), Crackles ( rare basilar), Rhonchi ( expiratory), Non-Labored Respirations, Accessory Resp Muscle Use (n) and Stridor (n)
GI: Soft, Non Distended and Non Tender
Neurology: Awake, Alert and No Motor Deficits
Skin: Warm, Good Color, Cyanosis (n), Jaundice (n) and Rash (nn)
Labs/Micro/Reports
Lab Data
09/30/23 04:27
09/30/23 04:27
Microbiology
09/29/23 22:53 Nasal Swab Influenza Types A & B (FABIENNE) - Final
Negative for Influenza A & B, NAAT
Negative results must be combined with clinical observations
and patient history.
Nucleic Acid Amplification test (NAAT)performed on the
[employer] platform.
[2023-10-01 11:55] LABS: Glucose - Point of Care 125 mg/dl (70-99)
[2023-10-01 15:37] VITALS: BP 107/72
[2023-10-01 16:31] LABS: Glucose - Point of Care 96 mg/dl (70-99)
[2023-10-01 21:39] LABS: Glucose - Point of Care 124 mg/dl (70-99)
[2023-10-01] MEDS: KLONOPIN 0.5 MG PO (22:22)
[2023-10-01 22:50] VITALS: BP 119/63
[2023-10-02 06:00] VITALS: BMI 32.0
[2023-10-02 06:39] LABS: Glucose - Point of Care 108 mg/dl (70-99)
[2023-10-02 07:39] VITALS: BP 145/73
[2023-10-02] MEDS: DUONEB 3 ML INH ×2 (07:50→11:29)
[2023-10-02] MEDS: NEURONTIN 100 MG PO (09:16)
[2023-10-02] MEDS: FLOMAX 0.400000000000000022 MG PO (09:16)
[2023-10-02] MEDS: MUCINEX 1200 MG PO (09:16)
[2023-10-02] MEDS: TOPROL XL 12.5 MG PO (09:17)
[2023-10-02] MEDS: TESSALON PERLES 200 MG PO (09:17)
[2023-10-02] MEDS: ASPIR LOW (ENTERIC COATED) 81 MG PO (09:17)
[2023-10-02] MEDS: ALDACTONE 25 MG PO (09:17)
[2023-10-02] MEDS: PLAVIX 75 MG PO (09:18)
[2023-10-02] MEDS: KCL 10 MEQ PO (09:18)
[2023-10-02] MEDS: LIPITOR 80 MG PO (09:18)
[2023-10-02] MEDS: HEPARIN 5000 UNITS SC (09:18)
[2023-10-02] MEDS: APRESOLINE 50 MG PO (09:19)
[2023-10-02] MEDS: BUMEX 4 MG PO (09:22)
[2023-10-02] MEDS: COZAAR 50 MG PO (09:23)
[2023-10-02] MEDS: DECADRON 4 MG IV (09:23)
--- NOTE | 2023-10-02 10:03 | W.PN.PUL.V3 ---
Today's Communication / Plan
-
.
Wean oxygen.
Increase activity.
Prednisone taper.
Continue bronchodilators and inhaled corticosteroids.
Consider Bhupendra as an outpatient
Assessment
-
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
inhalers/nebulizers at home. Patient says that he is on chronic prednisone usually on average 10 mg daily. He ran out of prednisone on and was unable to make it throughout the holiday weekend so he came into the hospital. He usually gets
multiple flareups a year, and is able to overcome it with prednisone and Z-Danilo. 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 He has been seen at [facility] as well as [facility]. He has a nebulizer at home and he uses this only for as needed purposes. He says that he previously was on Nucala about 5 years ago for 6 months, but he is not sure if it really helped him breathe better so he stopped, also he was
very cost prohibitive. In the ER he was saturating 94% on room air but due to shortness of breath he was placed onto 2 L/min and saturating at 97%. He was tachypneic to 24 breaths/min, heart rate 86 and afebrile to 98.5 �F. Initial BP 155/88.
Labs showed an absolute eosinophil count of 1000, proBNP of 81, and he was COVID antigen negative. Flu swab also negative and CXR showed no acute cardiopulmonary process.
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
s/p XRT
Impression:
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
#Increased eosinophil count (absolute count of 1000 on 09/29/2023)
#Prediabetes with A1c 6.4
#History of CAD s/p coronary stent
#Chronic HFpEF (via TTE from December 2022 with LVEF 55 to 60%, and normal RV size/function)
#Obesity with BMI of 33
Plan:
Respiratory status continues to slowly improve
Supplemental oxygen as needed.
Assessment discharge supplemental oxygen needs prior to discharge.
Decadron 4 mg IV every 8 8 hours-changed to prednisone 50 mg daily for 4 days, then 40 mg daily for 4 days, then 30 mg daily for 4 days, then 20 mg daily for 4 days and then 10 mg daily until seen by pulmonary
Mucolytic's
Tessalon Perles.
Duo nebs 4 times a day
Incentive spirometry-encouraged
Aspiration precautions continues
Eosinophil level significantly elevated.
Check Aspergillus serology as well as IgE level.
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
Transition to Breztri the time of discharge..
Diuresis as tolerated.
Monitor renal function, weight, lower extremity edema and intake/output
Risk factors for sleep-disordered breathing-outpatient sleep evaluation as well.
DVT prophylaxis-on subcutaneous heparin.
Nutrition
Early mobilization
Stable for potential discharge with post pulmonary [id number] with primary team
As stated above, he should be discharged on triple inhaler therapy with Breztri versus Trelegy 200 mcg upon discharge, and Dr. Strong will see him in the office to discuss adding on a biologic (likely Dupixent as he did not feel improvement with
Nucala in the past + it was cost-prohibitive). He will also need to be discharged home on prednisone as he chronically takes 10 mg daily, on average.
Outpatient pulmonary follow-up
Data:
CXR � 09/29/2023: No acute cardiopulmonary process
TTE :
Normal left ventricular chamber size.
Normal regional wall motion.
Mild concentric left ventricular hypertrophy.
Left ventricular ejection fraction is 55-60% by volumetric assessment.
Normal right ventricular size and function.
Trace mitral regurgitation.
The tricuspid valve is structurally and functionally normal.
The pulmonic valve is structurally and functionally normal.
No pericardial effusion.
The aortic arch is normal in caliber.
The IVC was not well visualized.
Interatrial septum is intact with no evidence of shunting by color flow Doppler.
Total time spent today was 55 minutes for this encounter. Time includes reviewing laboratory test/imaging results, reviewing pertinent medical records, obtaining and reviewing medical history, performing an appropriate exam, ordering medications,
tests and procedures. Time also includes documentation of this encounter, coordinating patient care and communicating with other healthcare professionals. Total time does not include separately billed tests performed on this date of service.
Subjective Data
-
Date of Service:
Date of Service: October 02, 2023
Chief Complaint: Pulmonary Follow Up and Dyspnea Follow Up
Subjective:
Feels better, less short of breath, still wheezing, no chest pain or abdominal pain
Review of Systems
General: Other ( per HPI)
Objective Data
Data Reviewed
Vital Signs / I&O:
Vital Signs
Temp Pulse Resp BP Pulse Ox
98.2 F 55 20 145/73 95
10/02/23 07:39 10/02/23 09:17 10/02/23 07:52 10/02/23 09:17 10/02/23 07:52
Intake and Output
10/01/23 10/02/23 10/03/23
06:59 06:59 06:59
Intake Total 720 / 720 1140 / 1140
Output Total 3900 / 3900
Balance -3180 / -3180 1140 / 1140
SaO2: 95
Nasal Cannula flow liters per minute: 2
Physical Exam
General: Respiratory Distress (n) and Comfortable
HEENT: Normocephalic and Anicteric
Cardiovascular: Regular Rhythm
Respiratory: Wheeze ( expiratory), Crackles ( rare basilar), Rhonchi ( expiratory), Non-Labored Respirations, Accessory Resp Muscle Use (n) and Stridor (n)
GI: Soft, Non Distended and Non Tender
Neurology: Awake, Alert and No Motor Deficits
Skin: Warm, Good Color, Cyanosis (n), Jaundice (n) and Rash (nn)
Labs/Micro/Reports
Lab Data
09/30/23 04:27
09/30/23 04:27
Microbiology
09/29/23 22:53 Nasal Swab Influenza Types A & B (FABIENNE) - Final
Negative for Influenza A & B, NAAT
Negative results must be combined with clinical observations
and patient history.
Nucleic Acid Amplification test (NAAT)performed on the
[employer] NOW platform.
--- NOTE | 2023-10-02 10:16 | W.PN.HOSP.TC ---
Today's Communication/Plan
-
dc planning
Assessment / Plan
Assessment / Plan
Physical Exam
General: Keeps coughing while talking. But not in acute distress
HEENT: Normocephalic, Atraumatic, EOMI, MMM
Respiratory: Less rales and wheezes bilaterally
Cardiac: Normal S1/S2, Regular Rate and Rhythm
GI: Soft, Nontender, Nondistended, Normal Bowel Sounds
Extremities: No Clubbing, Cyanosis, or Edema
Neuro: Nonfocal/Grossly Intact
Psych: Calm, Cooperative
: no hematuria
# Acute respiratory distress with acute hypoxic respiratory failure
Good clinical improvement in last 48 hours
Underlying chronic lung disease on chronic prednisone. Per pt ( COPD, Eosinophilic lung disease) . No hx of smoking or vaping. He follows with Dr Gilmar Mccormack at [facility]. Will reach out to him today.
-Negative COVID and flu
- Chest x ray : No acute cardiopulmonary process.
-Decadron 4 Mg IV every 6 hours. Wean down to Q8H then oral prednisone in am. He was on daily prednisone at 10 mg ( recently ran out )
- Ordered Duo Neb ATC
-Added Mucinex & Tessalon
-Nebs as needed for short of breath and wheezing
-Continue supplemental oxygen to keep sat greater than 92
Patient wants to f/w our pulmonary group now
Appreciate pulmonary input
# Chronic heart failure with preserved ejection fraction
Continue Bumex spironolactone
# Hypercalcemia, possibly related to high Vitamin D, check level
# DM
HGB A1C 6.4
c/w home regimen upon dc
for now, ISS . Blood glucose might go up due to steroid therapy.
# CAD
Negative serial troponin
No chest pain
# Primary HTN
c/w metoprolol, hydralazine, losartan, Bumex and Aldactone
# BPH - Flomax, hold if hypotensive
DVT PPx hep subQ
Total discharge time spent to see the patient, examine the patient on the floor, review data and lab results, discuss discharge and treatment plan with patient, nursing staff around 65 minutes
Anticipated Discharge: Today
Subjective/Interval History
-
Date of Service: October 02, 2023
Objective Data
-
Vital Signs:
Vital Signs
Temp Pulse Resp BP Pulse Ox
98.2 F 55 20 145/73 95
10/02/23 07:39 10/02/23 09:17 10/02/23 07:52 10/02/23 09:17 10/02/23 10:03
I&O
10/01/23 10/02/23 10/03/23
06:59 06:59 06:59
Intake Total 720 / 720 1140 / 1140
Output Total 3900 / 3900
Balance -3180 / -3180 1140 / 1140
--- NOTE | 2023-10-02 11:10 | W.DCSUMMARY ---
Discharge Summary
Discharge Data
Date of Admission: 09/29/23
Date of Discharge: 10/02/23
-
Pending Results: No
Hospital Course
73 years old male who presented with shortness of breath. Patient was diagnosed with acute hypoxic respiratory failure secondary to acute asthmatic exacerbation (type II with hypereosinophilia). He was started on intravenous steroid with
nebulizer treatment. Eosinophil level was significantly elevated. Patient was followed by pulmonary doctor. He was given cough medications including Tessalon and Mucinex. Patient started to improve. He was able to ambulate and eat without
problem. Patient reported history of insomnia and inability to sleep especially on high doses of steroid. Patient was given Klonopin and he reported good response. Patient requested prescription for Klonopin to use at home as needed. He was
counseled regarding potential side effects of Klonopin as a controlled sedative substance. Patient verbalized understanding to potential side effects of benzodiazepine. Chest x-ray did not show acute pulmonary process. He had negative COVID and
influenza test. Patient was found to have high level of vitamin D and advised to cut back on vitamin D supplement. He did not have chest pain. He remained hemodynamically stable and was discharged in a stable condition. Patient expressed his
intent to follow-up with our local pulmonary group. He was given contact information for that.
Discharge Plan
-
Patient Disposition: Home (Routine Discharge)
Discharge Diagnosis/Procedures: Acute asthmatic exacerbation
You are seen by pulmonary doctor. You are given intravenous steroid, nebulizer treatment, cough medicine. You responded well. A call was put out to our [facility] pulmonary doctor. You tolerated medicine well.
Complained of insomnia. You are given Klonopin. Klonopin is a controlled substance/benzodiazepine-sedative. Avoid regular use or operating machinery or driving car while taking it.
Condition: Good
Diet: As tolerated
Referrals:
Gadiel Strong MD [Active] - in two to three weeks (with full PFTs on day of office visit)
Peter Aldridge DO [Family Provider] - in one to two weeks
Prescriptions:
New
clonazepam 0.5 mg Tablet
0.5 mg PO HSPRN PRN (Reason: insomnia) Qty: 10 0RF
clopidogrel 75 mg Tablet
75 mg PO DAILY Qty: 30 0RF
benzonatate 100 mg Capsule
200 mg PO BID Qty: 40 0RF
guaifenesin 600 mg Tablet Extended Release 12hr
1,200 mg PO Q12 Qty: 40 0RF
prednisone 10 mg tablet
50 mg PO DAILY Qty: 60 0RF
Rx Instructions:
50 mg daily X 4 days, 40 mg daily X4 days, 30 mg daily X4 days, 20 mg daily X 4 days, then 10 mg daily.
bumetanide 2 mg tablet
4 mg PO DAILY Qty: 60 0RF
Continued
aspirin 81 MG tablet,delayed release (DR/EC)
81 mg PO DAILY
losartan 50 MG tablet
50 mg PO DAILY
Patient Comments:
05/04/2020-patient says taking 200mg in the last 24 hours, thought it wouold bring his bp down but didnot seem like it work so now his in dher
acetaminophen [Tylenol Extra Strength] 500 MG tablet
1,000 mg PO Q6H PRN (Reason: mild pain)
tamsulosin 0.4 MG capsule
0.4 mg PO DAILY
albuterol sulfate 2.5 MG/3 ML solution for nebulization
2.5 mg inhalation R Q4HPRN PRN (Reason: wheeze/cough)
albuterol sulfate 1 PUFF HFA aerosol inhaler
2 puff inhalation R Q4HPRN PRN (Reason: WHEEZING)
cholecalciferol (vitamin D3) 1,000 UNITS tablet
1,000 units PO DAILY
atorvastatin 80 mg Tablet
80 mg PO DAILY
famotidine 40 mg Tablet
40 mg PO DAILY
hydralazine 25 mg Tablet
50 mg PO BID
potassium chloride 10 mEq Tablet Extended Release
10 meq PO BID
spironolactone 25 mg Tablet
25 mg PO DAILY
nitroglycerin [Nitrostat] 0.4 mg Tablet, Sublingual
0.4 mg SUBLINGUAL [id number] PRN (Reason: chest pain)
metoprolol succinate 25 mg Tablet Extended Release 24 Hr
12.5 mg PO DAILY
coenzyme Q10 75 mg Capsule
75 mg PO DAILY
omega 1-bti-cnc-fish oil [Fish Oil] 60-90-500 mg Capsule
1 cap PO BID
Patient Comments:
Pt states 'I stopped taking Fish oil per my puppy walker. He put me on it then off it.'
modafinil 200 mg Tablet
200 mg PO DAILYPRN PRN (Reason: narcolepsy symptoms)
gabapentin 100 mg Capsule
100 mg PO TID Qty: 90 0RF
metformin 500 mg Tablet
500 mg PO BID
Held
prednisone 10 mg Tablet
10 mg PO DAILY
Hold Instructions: resume upon finishing tapering schedule.
Patient Comments:
Pt states 'if feeling back I do it like a pack 50 mg to 40 down to 5 mg. I hope 5 mg work but I do 10mg that doesn't help.'
Discontinued
bumetanide 2 mg Tablet
4 mg PO DAILY
Discharge Orders:
Discharge Patient (As Directed); Ordered 10/02/23
Ordered By: Marilu Mishra
Discharge Date and Time
Discharge Date/Time: 10/02/23 12:58
Print Language: FRENCH
[2023-10-02 11:14] LABS: Glucose - Point of Care 106 mg/dl (70-99)
--- NOTE | 2023-10-02 11:32 | CM ---
Patient seen bedside, initial assessment completed. Patient resides with his in a two story home, two steps to enter. Patient is independent with ADLs/IADLs, has nebulizer at home. Patient denies VN or SNF history. Patient confirms PCP Peter
Oly, pharmacy [facility] in [place], [place], confirms prescription coverage. Patient denies food insecurities at home. Patient reports his will provide transportation home. IMM review, signed, placed in chart. CM will continue to follow for
discharge planning needs.
Plan; home no needs anticipated.
[2023-10-02] MEDS: PREVNAR 20 0.5 ML IM (12:23)
[2023-10-02 21:19] LABS: IgE 73 kU/L (<=214)
[2023-10-06 01:48] LABS: Aspergillus Abs by ID Not Detected (Not Detected)
== END 2023-10-02 12:58 | disposition home or self-care (01) | DRG 202 ==
LOC: 4 WEST ACU 23:17
PROVIDERS: Registered Nurse; ADMITTING PHYSICIAN Internal Medicine; ATTENDING PHYSICIAN Internal Medicine; CONSULT PHYSICIAN Internal Medicine Critical Care Medicine; EMERGENCY PHYSICIAN Emergency Medicine; FAMILY PHYSICIAN Family Medicine
PROC: 3E0234Z Introduction of Serum, Toxoid and Vaccine into Muscle, Percutaneous Approach (ICD-10-PCS; 2023-10-02)
DX: J45.901 Unspecified asthma with (acute) exacerbation (principal); J96.01 Acute respiratory failure with hypoxia; J82.83 Eosinophilic asthma; I50.32 Chronic diastolic (congestive) heart failure; I25.10 Atherosclerotic heart disease of native coronary artery without angina pectoris; I11.0 Hypertensive heart disease with heart failure; E66.9 Obesity, unspecified; E78.00 Pure hypercholesterolemia, unspecified; K21.9 Gastro-esophageal reflux disease without esophagitis; E83.52 Hypercalcemia; E11.40 Type 2 diabetes mellitus with diabetic neuropathy, unspecified; N40.0 Benign prostatic hyperplasia without lower urinary tract symptoms; Z11.52 Encounter for screening for COVID-19; Z23 Encounter for immunization; Z68.32 Body mass index [BMI] 32.0-32.9, adult; Z79.52 Long term (current) use of systemic steroids; Z79.82 Long term (current) use of aspirin; Z79.899 Other long term (current) drug therapy; Z79.84 Long term (current) use of oral hypoglycemic drugs; Z85.46 Personal history of malignant neoplasm of prostate; Z92.3 Personal history of irradiation; Z95.5 Presence of coronary angioplasty implant and graft; G47.00 Insomnia, unspecified
CPT/HCPCS: 71046; 80048; 80053; 82306; 82785; 82962; 83036; 83880; 84484; 85025; 85027; 86606; 87502; 87811; 90677; 93306; 94640; 96374; 99285; G0009

== ENCOUNTER 2023-12-04 12:06 | Emergency (ER) | payer MEDICARE, SELFPAY ==
[2023-12-04 12:09] VITALS: BP 166/83
--- NOTE | 2023-12-04 12:21 | ED.GENMED ---
History of Present Illness
<Amy Galan PA-C - Last Filed: 12/04/23 18:08>
General
Chief Complaint: Skin Surface Trauma
Source: patient
Exam Limitations: none
Time Seen by Provider: 12/04/23 12:17
Nursing documentation reviewed up to this point in time: agreed with
History of Present Illness
History of Present Illness:
73-year-old male with a past medical history of hypertension, hyperlipidemia takes aspirin and Plavix, prostate cancer presenting emergency department today with concerns of a laceration on his left index finger. 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 Patient notes persistent bleeding. Patient states that his tetanus shot is up-to-date within the last 5
years. Patient denies any numbness or tingling in his upper extremities, denies any weakness. Patient denies any pallor in his fingers. Patient denies any other injuries. Patient does not have orthopedist he follows with.
Past History
<Amy Galan PA-C - Last Filed: 12/04/23 18:08>
Past History
ED Past Medical History: CAD, Cancer, CHF, GERD, HTN and Hypercholesterolemia
ED Past Surgical History: Orthopedic and Other
Social History
Tobacco: Non-smoker
Alcohol: Occasional
Drug: None
Personal:
Living: with family
Employment: Retired
Family History
Family History: CAD
Review of Systems
<Amy Galan PA-C - Last Filed: 12/04/23 18:08>
Review of Systems
All Other Systems: ROS reviewed and negative except as documented in HPI and ROS
Phy Exam
<Amy Galan PA-C - Last Filed: 12/04/23 18:08>
Physical Exam
Physical Exam:
General: Patient is well appearing and in no acute distress; non-toxic
Skin: Warm and dry, there is a laceration to the tip of the left index finger about 1 cm in length with an adjacent skin avulsion. It is actively bleeding. Brisk capillary refill.
Head: Normocephalic, atraumatic
Eyes: Sclera non-icteric. EOMs intact.
Cardiac: Regular rate
Pulm: Normal respiratory effort
Musculoskeletal: Full range of motion bilateral upper extremities. FDS and FDP testing intact.
Neuro: CN II-XII intact, no focal neurologic deficits.
Psychiatric: Appropriate mood and affect.
Course
<Amy Galan PA-C - Last Filed: 12/04/23 18:08>
Orders/Labs/Results
Orders:
Orders
12/04/23 12:27
Tetanus/Diphth/Acelpertussis [Adacel] 0.5 ml IM .ONCE ONE
CR Finger(s)/thumb Min 2 Vw Lt Urgent
Comment:
Reason For Exam: finger saw injury
12/04/23 12:35
Acetaminophen [Tylenol] 1,000 mg PO NOW STA
Vital Signs
Initial and Last Documented VS:
Initial Vital Signs
Temp Pulse Resp BP Pulse Ox
97.9 F 58 16 166/83 96
12/04/23 12:09 12/04/23 12:09 12/04/23 12:09 12/04/23 12:09 12/04/23 12:09
Last Documented Vital Signs
Temp Pulse Resp BP Pulse Ox
97.9 F 58 16 166/83 96
12/04/23 12:09 12/04/23 12:09 12/04/23 12:09 12/04/23 12:09 12/04/23 12:09
<Brody Stevens DO - Last Filed: 12/04/23 12:34>
Orders/Labs/Results
Orders:
Orders
12/04/23 12:27
Tetanus/Diphth/Acelpertussis [Adacel] 0.5 ml IM .ONCE ONE
CR Finger(s)/thumb Min 2 Vw Lt Urgent
Comment:
Reason For Exam: finger saw injury
12/04/23 12:35
Acetaminophen [Tylenol] 1,000 mg PO NOW STA
Vital Signs
Initial and Last Documented VS:
Initial Vital Signs
Temp Pulse Resp BP Pulse Ox
97.9 F 58 16 166/83 96
12/04/23 12:09 12/04/23 12:09 12/04/23 12:09 12/04/23 12:09 12/04/23 12:09
Last Documented Vital Signs
Temp Pulse Resp BP Pulse Ox
97.9 F 58 16 166/83 96
12/04/23 12:09 12/04/23 12:09 12/04/23 12:09 12/04/23 12:09 12/04/23 12:09
Procedures
<Amy Galan PA-C - Last Filed: 12/04/23 18:08>
Laceration Closure
Left First Finger:
Status of Wound: clean
Size of Wound in cm: 1
Description of Wound Edges: ragged and macerated
Preparation: cleaned with saline
Anesthesia: 1% Lidocaine and Digital-Regional
Revision/Debridement: minor revision
Wound exploration: explored to base- no FB
Type of Closure: single layer closure and layered closure (one deep dermal suture was placed and 6 superficial sutures were placed)
Skin Closure Material: 5-0 prolene and 5-0 chromic gut
Number of sutures: 6
<Amy Galan PA-C - Last Filed: 12/04/23 18:08>
MDM/Problems Addressed
Differential Diagnosis Includes:
Differentials include abrasion, laceration, neurovascular injury, distal phalanx fracture
MDM/Problems Addressed:
Finger tip injury:
73-year-old male with a past medical history of hypertension, hyperlipidemia takes aspirin and Plavix, prostate cancer presenting emergency department today with concerns of a laceration on his left index finger. Patient injured it using a saw. On
exam, there is a laceration to the tip of the first finger with adjacent avulsion injury. X-ray was obtained which is negative for any fracture of the distal phalanx. Patient is neurovascularly intact. There is no tendon involvement. Wound was
repaired with sutures in the adjacent avulsion bleeding, Surgicel mesh was placed over it and pressure dressing applied. Patient stable for discharge, discussed follow-up with hand surgery for evaluation. Wound care instructions discussed
Chronic conditions affecting care:
Hypertension, hyperlipidemia, aspirin Plavix use
<Amy Galan PA-C - Last Filed: 12/04/23 18:08>
*Radiology
Radiology exam reviewed: preliminary read by ED provider (No acute fracture or dislocation)
*Pulse Oximetry
Patient hypoxic: no
*Critical Care Note
Total Time (30-74mins, 75-104mins- exclusive of procedures): Not Applicable
Data Reviewed
Review of Other/Old Records Reveals: Records (Reviewed discharge summary from 10/02/2023 with patient was seen for an acute asthma observation)
Source: patient and records
ED Attending Note
<Amy Galan PA-C - Last Filed: 12/04/23 18:08>
-
Portions of this chart may have been created with voice recognition software.� Occasional wrong word or��sound alike� substitutions may have occurred due to the inherent limitations of voice recognition software.
<Brody Stevens DO - Last Filed: 12/04/23 12:34>
ED Attending Note
Patient seen and examined by attending physician: Yes
I performed the substantive portion of visit, reviewed & personally made and approve the management plan that is documented in note by myself or MONICA.: Yes
I performed a history and physical exam of patient and discussed management with resident, I reviewed resident's note and agree with documented findings and plan of care.: Yes
ED Attending Note:
I evaluated patient at bedside. The injury is primarily at the distal tip. It is entirely distal to the DIP.
Discharge Plan
Departure
Patient Disposition: Home (Routine Discharge)
Date of Disposition: 12/04/23
Time of Disposition: 14:04
Patient with high blood pressure during this ER visit?: Yes
Condition: Good
Discharge Problem:
Injury of tip of finger
Instructions: Wound Care (DC), Laceration Repair With Stitches (DC), BLOOD PRESSURE
Prescriptions:
No Action
aspirin 81 MG tablet,delayed release (DR/EC)
81 mg PO DAILY
losartan 50 MG tablet
50 mg PO DAILY
Patient Comments:
05/04/2020-patient says taking 200mg in the last 24 hours, thought it wouold bring his bp down but didnot seem like it work so now his in th dher
acetaminophen [Tylenol Extra Strength] 500 MG tablet
1,000 mg PO Q6H PRN (Reason: mild pain)
tamsulosin 0.4 MG capsule
0.4 mg PO DAILY
albuterol sulfate 2.5 MG/3 ML solution for nebulization
2.5 mg inhalation R Q4HPRN PRN (Reason: wheeze/cough)
albuterol sulfate 1 PUFF HFA aerosol inhaler
2 puff inhalation R Q4HPRN PRN (Reason: WHEEZING)
cholecalciferol (vitamin D3) 1,000 UNITS tablet
1,000 units PO DAILY
atorvastatin 80 mg Tablet
80 mg PO DAILY
prednisone 10 mg Tablet
10 mg PO DAILY
Patient Comments:
Pt states 'if feeling back I do it like a pack 50 mg to 40 down to 5 mg. I hope 5 mg work but I do 10mg that doesn't help.'
famotidine 40 mg Tablet
40 mg PO DAILY
hydralazine 25 mg Tablet
50 mg PO BID
potassium chloride 10 mEq Tablet Extended Release
10 meq PO BID
spironolactone 25 mg Tablet
25 mg PO DAILY
nitroglycerin [Nitrostat] 0.4 mg Tablet, Sublingual
0.4 mg SUBLINGUAL [id number] PRN (Reason: chest pain)
metoprolol succinate 25 mg Tablet Extended Release 24 Hr
12.5 mg PO DAILY
coenzyme Q10 75 mg Capsule
75 mg PO DAILY
omega [id number]-fish oil [Fish Oil] 60-90-500 mg Capsule
1 cap PO BID
Patient Comments:
Pt states 'I stopped taking Fish oil per my reel repairer. He put me on it then off it.'
modafinil 200 mg Tablet
200 mg PO DAILYPRN PRN (Reason: narcolepsy symptoms)
gabapentin 100 mg Capsule
100 mg PO TID Qty: 90 0RF
metformin 500 mg Tablet
500 mg PO BID
clonazepam 0.5 mg Tablet
0.5 mg PO HSPRN PRN (Reason: insomnia) Qty: 10 0RF
clopidogrel 75 mg Tablet
75 mg PO DAILY Qty: 30 0RF
benzonatate 100 mg Capsule
200 mg PO BID Qty: 40 0RF
guaifenesin 600 mg Tablet Extended Release 12hr
1,200 mg PO Q12 Qty: 40 0RF
prednisone 10 mg tablet
50 mg PO DAILY Qty: 60 0RF
Rx Instructions:
50 mg daily X 4 days, 40 mg daily X4 days, 30 mg daily X4 days, 20 mg daily X 4 days, then 10 mg daily.
bumetanide 2 mg tablet
4 mg PO DAILY Qty: 60 0RF
Referrals:
Peter Aldridge DO [Family Provider] -
Dominic Celestin MD [Active] - Call in 1-3 days for appt
Activity Restrictions/Additional Instructions:
Please follow up with Dr. Celestin's office. Please say that you were seen in our emergency department for a finger tip avulsion injury.
Please change dressing once daily. You can apply non-adherent pad over the wound and wrap it with kyrlex wrap or any other wound wrap.
The stitches can be removed in 7 to 10 days, you can report to the emergency department, urgent care, or your family doctor to have them removed.
Please return emergency department to experience purulent drainage from the wound, fevers or chills, redness surrounding the wound, increasing pain.
Please keep the wound dry for 24 hours. After 24 hours, you can clean the wound with mild soap and water.
You can expect the Surgicel to fall off on its own as the bleeding stops and the wound heels. If it is still present on the wound after a few days and the bleeding is well controlled, you can run it under water and take it off.
Interventions
Interventions:
*General Assessment Last Done: 12/04/23 12:09
*ED COVID-19 Vaccine History Last Done: 12/04/23 12:09
*Nursing Disposition Last Done: 12/04/23 14:10
ED-Skin Assessment Last Done: 12/04/23 12:40
Discharge Date and Time
Discharge Date/Time: 12/04/23 14:30
Print Language: MONGOLIAN
[2023-12-04] MEDS: TYLENOL 1000 MG PO (12:41)
[2023-12-04] MEDS: ADACEL 0.5 ML IM (14:07)
== END 2023-12-04 14:30 | disposition home or self-care (01) ==
LOC: EMR 12:06
PROVIDERS: EMERGENCY PHYSICIAN Emergency Medicine; FAMILY PHYSICIAN Family Medicine
DX: S69.92XA Unspecified injury of left wrist, hand and finger(s), initial encounter (principal); W27.0XXA Contact with workbench tool, initial encounter; Z23 Encounter for immunization; I11.0 Hypertensive heart disease with heart failure; I50.9 Heart failure, unspecified; E78.5 Hyperlipidemia, unspecified; Z79.82 Long term (current) use of aspirin
CPT/HCPCS: 99284; 12041; 90471; 73140; 90715

== ENCOUNTER → 2024-11-05 10:48 | Outpatient (REF) | payer MEDICARE, SELFPAY | LOC: RAD 10:48 | PROVIDERS: ATTENDING PHYSICIAN Physician Assistant; FAMILY PHYSICIAN Family Medicine | DX: M79.641 Pain in right hand (principal) | CPT/HCPCS: 73130 ==

== ENCOUNTER → 2024-11-13 10:48 | Outpatient (REF) | payer OTHER, SELFPAY | LOC: RAD 10:48 | PROVIDERS: ATTENDING PHYSICIAN Student in an Organized Health Care Education/Training Program; FAMILY PHYSICIAN Family Medicine | DX: M06.4 Inflammatory polyarthropathy (principal); M25.551 Pain in right hip; M25.552 Pain in left hip; M79.641 Pain in right hand; M79.642 Pain in left hand; M81.8 Other osteoporosis without current pathological fracture; N28.9 Disorder of kidney and ureter, unspecified; Z79.52 Long term (current) use of systemic steroids; Z87.39 Personal history of other diseases of the musculoskeletal system and connective tissue | CPT/HCPCS: 73523 ==

== ENCOUNTER → 2025-02-04 08:31 | Outpatient (REF) | payer MEDICARE, SELFPAY | LOC: HWRAD 08:31 | PROVIDERS: ATTENDING PHYSICIAN Pain Medicine Interventional Pain Medicine; FAMILY PHYSICIAN Family Medicine | DX: M54.16 Radiculopathy, lumbar region (principal) | CPT/HCPCS: 72131 ==

== ENCOUNTER → 2025-02-10 12:07 | Outpatient (REF) | payer MEDICARE, SELFPAY | LOC: RAD 12:07 | PROVIDERS: ATTENDING PHYSICIAN Student in an Organized Health Care Education/Training Program; FAMILY PHYSICIAN Family Medicine; REFERRING PHYSICIAN Specialist | DX: M06.4 Inflammatory polyarthropathy (principal); M25.551 Pain in right hip; M25.552 Pain in left hip; M79.641 Pain in right hand; M79.642 Pain in left hand; M81.8 Other osteoporosis without current pathological fracture; N28.9 Disorder of kidney and ureter, unspecified; R80.9 Proteinuria, unspecified; Z79.52 Long term (current) use of systemic steroids; Z87.39 Personal history of other diseases of the musculoskeletal system and connective tissue; R26.81 Unsteadiness on feet | CPT/HCPCS: 70030; 73120 ==

== ENCOUNTER 2025-02-24 11:45 | Emergency (ER) | payer OTHER, SELFPAY ==
[2025-02-24 11:46] VITALS: BP 143/87
[2025-02-24 12:15] VITALS: BMI 33.0
--- NOTE | 2025-02-24 13:14 | ED.GENMED ---
History of Present Illness
General
Chief Complaint: Musculo-Skeletal Complaint
Time Seen by Provider: 02/24/25 13:03
History of Present Illness
History of Present Illness:
74-year-old male presents to the emergency department for evaluation of right ankle pain for the past 2 weeks, initially injured when he missed a step. He has been able to ambulate using cane assistance.
Past History
Past History
ED Past Medical History: CAD, Cancer, CHF, GERD, HTN and Hypercholesterolemia
ED Past Surgical History: Orthopedic and Other
Social History
Tobacco: Non-smoker
Alcohol: Occasional
Drug: None
Personal:
Living: with family
Employment: Retired
Family History
Family History: CAD
Review of Systems
Review of Systems
Allergies reviewed?: Yes
All Other Systems: ROS reviewed and negative except as documented in HPI and ROS
Phy Exam
Physical Exam
Physical Exam:
GEN: Well appearing, NAD, WDWN
HEENT: Oral mucosa moist, no scleral icterus
Cardiac: Regular rate
Lung: No respiratory distress, no tachypnea
MSK: Diffuse swelling of the right ankle circumferentially, no focal tenderness to the medial or lateral malleolus
Skin: Good color, no pallor or jaundice, no rashes
Neuro: AO x3, moves all extremities freely
Psych: Calm, cooperative
Course
Orders/Labs/Results
Orders:
Orders
02/24/25 11:49
Ankle, Right 3 view CR [CR Ankle - Right Min 3 Views *] Urgent
Comment:
Reason For Exam: pain
Vital Signs
Initial and Last Documented VS:
Initial Vital Signs
Temp Pulse Resp BP Pulse Ox
97.0 F 69 18 143/87 95
02/24/25 11:46 02/24/25 11:46 02/24/25 11:46 02/24/25 11:46 02/24/25 11:46
Last Documented Vital Signs
Temp Pulse Resp BP Pulse Ox
97.0 F 69 18 143/87 95
02/24/25 11:46 02/24/25 11:46 02/24/25 11:46 02/24/25 11:46 02/24/25 13:16
MDM/Problems Addressed
MDM/Problems Addressed:
X-rays do reveal a small osseous abnormality to the medial malleolus suggesting a subacute fracture. Regardless the patient has been ambulating on this nondisplaced injury for 2 weeks, will provide cam walker boot and recommend outpatient Ortho
follow-up
*Pulse Oximetry
SaO2: 95
Oxygen Mode of Delivery: Room air
Patient hypoxic: no
*Critical Care Note
Total Time (30-74mins, 75-104mins- exclusive of procedures): Not Applicable
ED Attending Note
-
Portions of this chart may have been created with voice recognition software.� Occasional wrong word or��sound alike� substitutions may have occurred due to the inherent limitations of voice recognition software.
Discharge Plan
Departure
Patient Disposition: Home (Routine Discharge)
Date of Disposition: 02/24/25
Time of Disposition: 13:19
Patient with high blood pressure during this ER visit?: No
Discharge Problem:
Severe sprain of right ankle
Instructions: Sprain (DC)
Prescriptions:
No Action
aspirin 81 MG tablet,delayed release (DR/EC)
81 mg PO DAILY
losartan 50 MG tablet
50 mg PO DAILY
Patient Comments:
05/04/2020-patient says taking 200mg in the last 24 hours, thought it wouold bring his bp down but didnot seem like it work so now his in th dher
acetaminophen [Tylenol Extra Strength] 500 MG tablet
1,000 mg PO Q6H PRN (Reason: mild pain)
tamsulosin 0.4 MG capsule
0.4 mg PO DAILY
albuterol sulfate 2.5 MG/3 ML solution for nebulization
2.5 mg inhalation R Q4HPRN PRN (Reason: wheeze/cough)
albuterol sulfate 1 PUFF HFA aerosol inhaler
2 puff inhalation R Q4HPRN PRN (Reason: WHEEZING)
cholecalciferol (vitamin D3) 1,000 UNITS tablet
1,000 units PO DAILY
atorvastatin 80 mg Tablet
80 mg PO DAILY
prednisone 10 mg Tablet
10 mg PO DAILY
Patient Comments:
Pt states 'if feeling back I do it like a pack 50 mg to 40 down to 5 mg. I hope 5 mg work but I do 10mg that doesn't help.'
famotidine 40 mg Tablet
40 mg PO DAILY
hydralazine 25 mg Tablet
50 mg PO BID
potassium chloride 10 mEq Tablet Extended Release
10 meq PO BID
spironolactone 25 mg Tablet
25 mg PO DAILY
nitroglycerin [Nitrostat] 0.4 mg Tablet, Sublingual
0.4 mg SUBLINGUAL [id number] PRN (Reason: chest pain)
metoprolol succinate 25 mg Tablet Extended Release 24 Hr
12.5 mg PO DAILY
coenzyme Q10 75 mg Capsule
75 mg PO DAILY
omega 7-muk-arz-fish oil [Fish Oil] 60-90-500 mg Capsule
1 cap PO BID
Patient Comments:
Pt states 'I stopped taking Fish oil per my experimental welder. He put me on it then off it.'
modafinil 200 mg Tablet
200 mg PO DAILYPRN PRN (Reason: narcolepsy symptoms)
gabapentin 100 mg Capsule
100 mg PO TID Qty: 90 0RF
metformin 500 mg Tablet
500 mg PO BID
clonazepam 0.5 mg Tablet
0.5 mg PO HSPRN PRN (Reason: insomnia) Qty: 10 0RF
clopidogrel 75 mg Tablet
75 mg PO DAILY Qty: 30 0RF
benzonatate 100 mg Capsule
200 mg PO BID Qty: 40 0RF
guaifenesin 600 mg Tablet Extended Release 12hr
1,200 mg PO Q12 Qty: 40 0RF
prednisone 10 mg tablet
50 mg PO DAILY Qty: 60 0RF
Rx Instructions:
50 mg daily X 4 days, 40 mg daily X4 days, 30 mg daily X4 days, 20 mg daily X 4 days, then 10 mg daily.
bumetanide 2 mg tablet
4 mg PO DAILY Qty: 60 0RF
Referrals:
Peter Aldridge DO [Family Provider, Family Practice]
Dominic Celestin MD [Active, Orthopedics]
Interventions
Interventions:
*Risk Screen - Suicide Last Done: 02/24/25 11:46
*General Assessment Last Done: 02/24/25 11:46
*Neglect/Abuse Screening Last Done: 02/24/25 12:16
*ED- Fall Risk Assessment Last Done: 02/24/25 12:15
*ED COVID-19 Vaccine History Last Done: 02/24/25 12:15
*ED Influenza Vaccine History Last Done: 02/24/25 12:15
*Nursing Disposition Last Done: 02/24/25 13:36
ED-Musculoskeletal Assessment Last Done: 02/24/25 12:16
Discharge Date and Time
Discharge Date/Time: 02/24/25 13:36
Print Language: FRENCH
== END 2025-02-24 13:36 | disposition home or self-care (01) ==
LOC: EMR 11:45
PROVIDERS: EMERGENCY PHYSICIAN Student in an Organized Health Care Education/Training Program; FAMILY PHYSICIAN Family Medicine
DX: S93.401A Sprain of unspecified ligament of right ankle, initial encounter (principal); W18.49XA Other slipping, tripping and stumbling without falling, initial encounter; I25.10 Atherosclerotic heart disease of native coronary artery without angina pectoris; I11.0 Hypertensive heart disease with heart failure; I50.9 Heart failure, unspecified; E78.00 Pure hypercholesterolemia, unspecified; K21.9 Gastro-esophageal reflux disease without esophagitis; Z79.82 Long term (current) use of aspirin; Z79.02 Long term (current) use of antithrombotics/antiplatelets; Z82.49 Family history of ischemic heart disease and other diseases of the circulatory system
CPT/HCPCS: 99283; 73610